=== PATIENT | male | born 1975 | race Caucasian/White ===

== ENCOUNTER → 2021-11-29 12:57 | Outpatient (BNVA) | payer MEDICAID, SELFPAY | PROVIDERS: PCP Registered Nurse Community Health; Referring Provider Registered Nurse Community Health; Visit Provider Internal Medicine | DX: E78.2 Mixed hyperlipidemia (principal); R94.31 Abnormal electrocardiogram [ECG] [EKG] | CPT/HCPCS: 93005; 99202 ==

== ENCOUNTER 2021-12-04 11:34 | Outpatient (REF) | payer MEDICAID, SELFPAY ==
--- NOTE | ~2021-12-04 | US_ITS ---
EXAMINATION: US SOFT TISSUE HEAD/NECK CLINICAL INFORMATION: 3 cm growth left chin. ? Cyst versus lipoma versus other. COMPARISON: None TECHNIQUE: Linear transducer baker-scale and color Doppler examination of the left chin area. FINDINGS: There is a heterogeneous solid irregularly shaped lesion corresponding to palpable abnormality just deep to the skin. This measures 3.3 x 2.9 x 1.8 cm. This appears avascular. Etiology is uncertain. This does not have ultrasound appearance suggestive of a cyst or lymph node. US/US soft tiss head and/or neck IMPRESSION: 3.3 x 2.9 x 1.8 cm heterogeneous solid subcutaneous lesion not suggestive of a cyst or lymph node. This could be further evaluated with neck soft tissue CT scan contrast or MRI.
== END 2021-12-04 11:35 | disposition home or self-care (01) ==
LOC: HO.US 11:34
PROVIDERS: PCP Registered Nurse Community Health; Visit Provider Registered Nurse Community Health
DX: R22.0 Localized swelling, mass and lump, head (principal)
CPT/HCPCS: 76536

== ENCOUNTER → 2022-01-30 07:49 | Outpatient (REF) | payer MEDICAID, SELFPAY ==
--- NOTE | 2022-01-30 07:53 | CA_ITS ---
Transthoracic Echocardiogram Patient (Last, First, Middle): Jacek Antunez, Gender: Male Date of : 1975 Age: 46 Procedure Date: 01/30/2022 Procedure Type: Transthoracic Echocardiogram Location: OP Height: 170.18 cm Weight: 95.26 kg BSA: 2.06 m2 Heart Rate: bpm BP: 125 / 88 mmHg Cloth Measurer Machine: YR/TO Referring MD: Aj Sewell MD Symptoms: R94.31 - Abnormal electrocardiogram [ECG] [EKG] Study Quality: Good ECG Rhythm: Sinus Conclusions: - The left ventricular systolic function is normal. The calculated ejection fraction is 57% by biplane method. - There is evidence of regional wall motion abnormalities. - No obvious valvular pathology seen on this study. - There is mild dilatation of the sinuses of Valsalva measuring 3.82 cm and mild dilatation of the ascending aorta measuring 3.80 cm. Findings Left Ventricle Normal left ventricular cavity size. There is normal left ventricular wall thickness. The left ventricular systolic function is normal. The calculated ejection fraction is 57% by biplane method. There is evidence of regional wall motion abnormalities. Diastolic function is normal for age. Wall Motion Rest Echo Findings The basal inferolateral segment is hypokinetic. The basal inferior segment is akinetic. Right Ventricle Normal right ventricular cavity size and systolic function. Atria Both atria are normal in size. Aortic Valve There is a normal trileaflet aortic valve. There is no aortic valve stenosis. There is no aortic valve regurgitation. Mitral Valve The mitral valve appears normal. There is trace mitral valve regurgitation. There is no mitral valve stenosis. Pulmonic Valve The pulmonic valve was not well visualized. Tricuspid Valve Normal tricuspid valve structure. There is trace tricuspid valve regurgitation. The pulmonary artery systolic pressure is normal. Great Vessels There is mild dilatation of the sinuses of Valsalva measuring 3.82 cm and mild dilatation of the ascending aorta measuring 3.80 cm. Venous The inferior vena cava is normal in size and collapses greater than 50% with inspiration. Pericardium/Pleural There is no evidence of pericardial effusion. Prior Study Comparison No prior study available for comparison. Recommendations, Care & Conclusions No obvious valvular pathology seen on this study. Measurements 2D Linear Measurements IVSd: 1.08 0.6-0.9/0.6-1.0 cm LVIDd: 5.36 3.9-5.3/4.2-5.9 cm LVIDd Index: 2.60 2.4-3.2/2.2-3.1 cm/m2 LVIDs: 3.01 2.0-3.6 cm LVPWd: 0.91 0.7-1.1 cm LA Diam: 4.40 2.7-3.8/3.0-4.0 cm LAIDs Index: 2.14 1.5-2.3 cm/m2 LV Mass: 252.97 67-162/88-224 g LV Mass Index: 122.80 43-95/49-115 g/m2 LVOT Diam: 2.70 3.0+(-)1.3 cm 2D Systolic Function EF 4C: 58.10 >55% EF 2C: 58.60 >55% EF BiP: 56.50 >55% Mitral Valve MV Pk E: 0.66 MV PK A: 0.59 MV Decel Time: 291.00 E/A: 1.10 E'Lateral: 10.10 E'Medial: 6.42 E/E' Med: 10.30 E/E' Lat: 6.60 PHT: 85.00 MVA PHT: 2.59 Decel [place]: 2.28 Aortic Valve AoV Pk Dmitry: 1.23 AoV Mn Dmitry: 0.83 AoV VTI: 0.24 AoV Pk Grad: 6.00 Aov Mn Grad: 3.00 ROSELIA Cont.VTI: 4.21 LVOT LVOT Pk Dmitry: 0.74 LVOT Mn Dmitry: 0.47 LVOT VTI: 0.18 LVOT Pk Grad: 2.00 LVOT Mn Grad: 1.00 LVOT Diam: 2.70 LVOT Area: 5.73 Diastolic Function MV Pk E: 0.66 MV Pk A: 0.59 E/A: 1.10 E'Medial: 6.42 E/E' Med: 10.30 E' Laterial: 10.10 E/E' Lat: 6.60 Right Ventricle TAPSE (mm): 24.40 TVS' Dmitry: 13.20 Tricuspid Valve TR Pk Dmitry: 1.44 TR Pk Grad: 8.00 RA Press: 3.00 RVSP: 11.00 Great Vessels Aorta Sinus of Valsalva: 3.82 2.0-3.[address] [place]: 2.99 1.7-3.4 cm Ao Asc: 3.80 2.1-3.4 cm Ao Arch: 3.30 Pulmonary Valve PV Pk Dmitry: 0.79 Peak PV Grad: 2.00 Updated in Other Vendor System with Status of Final Aj Sewell MD electronically signed on 02/01/2022 1:16:51 PM with status of Final
--- NOTE | 2022-01-30 10:04 | CA_ITS ---
Acquisition Time: 2022-01-30 10:15:53 Total Exercise Time: 00:09:28 Test Indications: Abnormal ECG Medications: ATORVASTATIN SUBOXONE FENOFIBRATE Protocol: MACIEJ Max HR: 146 BPM 83% of Pred: 174 BPM Max BP: 140/080 mmHG Max Work Load: 10.8 METS Exercise stress test with exercise 9 min 28 sec of Maciej protocol, achieving 83% MPHR, 10.8 METS with fatigue and moderate sob and request to stop, with no chest discomfort, with rare PVC, with normotensive response to exercise, with EKG showing T wave inversion lead III, aVF at baseline and again in recovery, without EKG changes meeting criteria for ischemia with exercise or recovery. Accurracy to assess for ischemia slightly decreased due to inability to acheive 85% MPHR. Test reviewed with Dr Sewell Referred By: Aj Sewell Overread By: TERRIE ORLANDO
== END ==
LOC: HO.CARD 07:49
PROVIDERS: Visit Provider Internal Medicine
DX: R94.31 Abnormal electrocardiogram [ECG] [EKG] (principal); E78.2 Mixed hyperlipidemia
CPT/HCPCS: 93017; 93306

== ENCOUNTER → 2022-02-19 08:35 | Outpatient (REF) | payer MEDICAID, SELFPAY ==
--- NOTE | ~2022-02-19 | NM_ITS ---
Lexiscan Myocardial perfusion study Indication: Wall motion abnormality on the echocardiogram, assess for coronary disease and ischemia. Technique: The patient was brought in for a Lexiscan perfusion study on 02/19/2022 and was injected 0.4 mg of Lexiscan intravenously. Within a minute of this injection 30 mCi of sestamibi was given intravenously. Images were obtained using the SPECT gamma camera interlaced with the gating device. Images were obtained in supine position. Resting perfusion study was performed on 02/20/2022. Patient was administered 30 mCi of sestamibi intravenously at rest. Images were then obtained in supine position. Total DLP 103mGy-cm. Images were processed with the software and compared side to side in short axis, horizontal long axis and vertical long axis views. Findings: Raw acquisition was reviewed. The stress perfusion study showed diminished tracer uptake in the basal inferior wall. With CT attenuation correction, adjacent GI uptake looks a bit more prominent. The gated study shows normal LV systolic function with calculated LVEF of 66%. LV cavity is normal in size. The gated study shows diminished thickening /contractility in the basal inferior wall. Resting study shows diminished tracer uptake in the basal inferior wall, but improved compared to the stress acquisition. Gating at rest reveals ejection fraction at 62%; basal inferior hypokinesis. The findings are consistent with basal inferior defect with reversible as well as fixed components. NM/NM cardiolite stress test Impression: 1. Myocardial perfusion imaging study shows mixed ischemia/infarct pattern in the basal inferior wall. 2. Gated LVEF is 66% during stress and 62% during rest. 3. Transient ischemic dilatation not present. EKG component of the test reported separately.
--- NOTE | 2022-02-19 08:38 | CA_ITS ---
Acquisition Time: 2022-02-19 09:02:45 Total Exercise Time: 00:08:34 Test Indications: ABN STRESS Medications: ATORVASTATIN INSULIN Protocol: MACIEJ Max HR: 125 BPM 71% of Pred: 174 BPM Max BP: 136/088 mmHG Max Work Load: 10.1 METS Started with exercise stress nuclear using Maciej protocol, pt exercised for 8 min 34 sec and MAPHR up to 70 % and patient was getting fatigued, test switched to Lexiscan, Pt tolerated well, denies any CP, EKG with occ PVC;s non-diagnostic for ischemia. Nuclear images pending. Normotensive response to test. Test reviewed with Dr. Bolanos. Referred By: Aj Sewell Overread By: Claire De La Rosa NP
== END ==
LOC: HO.CARD 08:35
PROVIDERS: Visit Provider Internal Medicine
DX: R94.30 Abnormal result of cardiovascular function study, unspecified (principal); R94.31 Abnormal electrocardiogram [ECG] [EKG]
CPT/HCPCS: 78452; 93017; A9500; J0280; J2785

== ENCOUNTER → 2022-03-13 08:57 | Outpatient (BNVA) | payer MEDICAID, SELFPAY | PROVIDERS: PCP Registered Nurse Community Health; Visit Provider Internal Medicine | DX: Z13.89 Encounter for screening for other disorder (principal) ==

== ENCOUNTER 2022-03-14 10:01 | Outpatient (REF) | payer MEDICAID, SELFPAY ==
[2022-03-14 11:01] LABS: Estimated Average Glucose 143 mg/dL; Hemoglobin A1c % 6.6 %
[2022-03-14 11:42] LABS: Alanine Aminotransferase 39 U/L (0-40); Albumin Level 4.2 g/dL (3.5-5.0); Alkaline Phosphatase 71 U/L (39-117); Anion Gap 12 (12-20); Aspartate Amino Transferase 36 U/L (5-37); Bilirubin Total 0.6 mg/dL (0.0-1.0); Blood Urea Nitrogen 12 mg/dL (9-16); Calcium 9.4 mg/dL (8.4-10.2); Carbon Dioxide 23 mmol/L (22-29); Chloride 106 mmol/L (96-108); Cholesterol 237 mg/dL; Estimated Glomerular Filt Rate > 60; Glucose Random 122 mg/dL (60-115); HDL Cholesterol 30 mg/dL; Potassium 4.1 mmol/L (3.3-5.1); Sodium 137 mmol/L (135-145); Total Protein 7.3 g/dL (6.5-8.0); Triglycerides 440 mg/dL
[2022-03-14 11:56] LABS: Free T4 (Free Thyroxine) 0.97 ng/dL (0.71-1.85); Vitamin D 25-OH Total 12.5 ng/mL (>30)
[2022-03-15 17:52] LABS: LDL Cholesterol Direct 96 mg/dL (<100)
[2022-03-18 18:02] LABS: Apolipoprotein B 131 mg/dL (<90)
== END 2022-03-14 10:02 | disposition home or self-care (01) ==
LOC: HO.LAB 10:01
PROVIDERS: PCP Registered Nurse Community Health; Visit Provider Internal Medicine
DX: E78.2 Mixed hyperlipidemia (principal); E78.1 Pure hyperglyceridemia; E55.9 Vitamin D deficiency, unspecified
CPT/HCPCS: 36415; 80053; 80061; 82172; 82306; 83036; 83721; 84439; 84443

== ENCOUNTER → 2022-03-19 13:05 | Outpatient (BNVA) | payer MEDICAID, SELFPAY | PROVIDERS: PCP Registered Nurse Community Health; Referring Provider Registered Nurse Community Health; Visit Provider Nurse Practitioner Family | DX: R94.31 Abnormal electrocardiogram [ECG] [EKG] (principal); R94.39 Abnormal result of other cardiovascular function study; I21.19 ST elevation (STEMI) myocardial infarction involving other coronary artery of inferior wall; E78.2 Mixed hyperlipidemia; E78.1 Pure hyperglyceridemia | CPT/HCPCS: 99212 ==

== ENCOUNTER → 2022-04-09 11:05 | Outpatient (BNVA) | payer MEDICAID, SELFPAY | PROVIDERS: PCP Registered Nurse Community Health; Visit Provider Internal Medicine | DX: Z13.89 Encounter for screening for other disorder (principal) ==

== ENCOUNTER → 2022-05-02 11:55 | Outpatient (BNVA) | payer MEDICAID, SELFPAY | PROVIDERS: PCP Registered Nurse Community Health; Visit Provider Registered Nurse Diabetes Educator | DX: E11.65 Type 2 diabetes mellitus with hyperglycemia (principal); Z79.4 Long term (current) use of insulin | CPT/HCPCS: 99211 ==

== ENCOUNTER 2022-06-03 15:21 | Outpatient (REF) | payer MEDICAID, SELFPAY ==
--- NOTE | ~2022-06-03 | XR_ITS ---
EXAMINATION: XR CHEST CLINICAL INFORMATION: SOB, cough and increased congestion. COMPARISON: None TECHNIQUE: 2 views of the chest were obtained. FINDINGS: No significant abnormality is noted involving the heart, lungs, mediastinum, bony thorax or soft tissues. XR/XR chest 2V IMPRESSION: Unremarkable chest exam.
== END 2022-06-03 15:22 | disposition home or self-care (01) ==
LOC: HO.XRAY 15:21
PROVIDERS: PCP Registered Nurse Community Health; Visit Provider Registered Nurse Community Health
DX: R06.02 Shortness of breath (principal); R05.9 Cough, unspecified
CPT/HCPCS: 71046

== ENCOUNTER 2022-06-21 14:29 | Outpatient (REF) | payer MEDICAID, SELFPAY ==
--- NOTE | 2022-06-21 | PFT_ITS ---
FLOWS: FEV1 88% of predicted at 3.20 L. FVC 81% of predicted at 3.74 L. FEV1 to FVC ratio of 0.86. No bronchodilator response. LUNG VOLUMES: Total lung capacity 81% of predicted at 5.20 L. Residual volume 78% of predicted at 1.41 L. Slow vital capacity 83% of predicted at 3.79 L. Expiratory reserve volume 23% of predicted at 0.31 L. Diffusion capacity is mildly decreased. IMPRESSION: No obstructive or restrictive ventilatory defect. No bronchodilator response. Decreased expiratory reserve volume suggests extrathoracic restriction likely secondary to abdominal obesity. Decreased diffusion capacity suggests emphysema. MD ASHLEY Garcia/MODL / [id number]
== END 2022-06-21 14:30 | disposition home or self-care (01) ==
LOC: HO.RESP 14:29
PROVIDERS: PCP Registered Nurse Community Health; Visit Provider Registered Nurse Community Health
DX: R06.02 Shortness of breath (principal)
CPT/HCPCS: 94060; 94727; 94729

== ENCOUNTER → 2022-07-26 14:15 | Outpatient (BNVA) | payer MEDICAID, SELFPAY | PROVIDERS: PCP Registered Nurse Community Health; Visit Provider Internal Medicine | DX: E78.1 Pure hyperglyceridemia (principal); E78.5 Hyperlipidemia, unspecified; E55.9 Vitamin D deficiency, unspecified; E11.65 Type 2 diabetes mellitus with hyperglycemia; Z79.4 Long term (current) use of insulin | CPT/HCPCS: 99212 ==

== ENCOUNTER 2022-08-07 07:34 | Outpatient (REF) | payer MEDICAID, SELFPAY ==
[2022-08-07 08:47] LABS: Cholesterol 205 mg/dL; HDL Cholesterol 30 mg/dL; Triglycerides 493 mg/dL
[2022-08-07 09:09] LABS: Vitamin D 25-OH Total 23.9 ng/mL (>30)
[2022-08-08 13:51] LABS: LDL Cholesterol Direct 80 mg/dL (<100)
== END 2022-08-07 07:35 | disposition home or self-care (01) ==
LOC: HO.LAB 07:34
PROVIDERS: Internal Medicine; Visit Provider Internal Medicine
DX: I25.10 Atherosclerotic heart disease of native coronary artery without angina pectoris (principal); E11.65 Type 2 diabetes mellitus with hyperglycemia; E78.2 Mixed hyperlipidemia; E55.9 Vitamin D deficiency, unspecified; Z79.4 Long term (current) use of insulin
CPT/HCPCS: 36415; 80061; 82306; 83721; 99212

== ENCOUNTER 2022-11-13 10:47 | Outpatient (REF) | payer MEDICAID, SELFPAY ==
[2022-11-13 13:31] LABS: Alanine Aminotransferase 40 U/L (0-40); Albumin Level 4.3 g/dL (3.5-5.0); Alkaline Phosphatase 75 U/L (39-117); Anion Gap 13 (12-20); Aspartate Amino Transferase 26 U/L (5-37); Bilirubin Total 0.4 mg/dL (0.0-1.0); Blood Urea Nitrogen 11 mg/dL (9-16); Calcium 9.4 mg/dL (8.4-10.2); Carbon Dioxide 24 mmol/L (22-29); Chloride 102 mmol/L (96-108); Cholesterol 431 mg/dL; Estimated Glomerular Filt Rate > 60; Glucose Random 123 mg/dL (60-115); HDL Cholesterol 22 mg/dL; Sodium 135 mmol/L (135-145); Total Protein 8.1 g/dL (6.5-8.0); Triglycerides 2201 mg/dL
[2022-11-13 13:39] LABS: Vitamin D 25-OH Total 13.1 ng/mL (>30)
[2022-11-13 13:57] LABS: Estimated Average Glucose 123 mg/dL; Hemoglobin A1c % 5.9 %
[2022-11-14 22:38] LABS: LDL Cholesterol Direct 76 mg/dL (<100)
== END 2022-11-13 10:48 | disposition home or self-care (01) ==
LOC: HO.LAB 10:47
PROVIDERS: Visit Provider Internal Medicine
DX: E55.9 Vitamin D deficiency, unspecified (principal); E11.65 Type 2 diabetes mellitus with hyperglycemia; E78.5 Hyperlipidemia, unspecified; Z79.4 Long term (current) use of insulin
CPT/HCPCS: 36415; 80053; 80061; 82306; 83036; 83721

== ENCOUNTER → 2022-11-18 13:55 | Outpatient (BNVA) | payer MEDICAID, SELFPAY | PROVIDERS: PCP Registered Nurse Community Health; Visit Provider Internal Medicine | DX: E78.5 Hyperlipidemia, unspecified (principal); E78.1 Pure hyperglyceridemia; E55.9 Vitamin D deficiency, unspecified; E11.65 Type 2 diabetes mellitus with hyperglycemia; I21.19 ST elevation (STEMI) myocardial infarction involving other coronary artery of inferior wall; F17.210 Nicotine dependence, cigarettes, uncomplicated; Z79.4 Long term (current) use of insulin; Z91.14 Patient's other noncompliance with medication regimen | CPT/HCPCS: 99212 ==

== ENCOUNTER 2023-01-27 09:52 | Outpatient (REF) | payer MEDICAID, SELFPAY ==
[2023-01-27 11:15] LABS: Cholesterol 298 mg/dL; HDL Cholesterol 31 mg/dL; Triglycerides 673 mg/dL
[2023-01-27 11:32] LABS: Vitamin D 25-OH Total 25.5 ng/mL (>30)
[2023-01-28 19:43] LABS: LDL Cholesterol Direct 102 mg/dL (<100)
== END 2023-01-27 09:53 | disposition home or self-care (01) ==
LOC: HO.10HDL 09:52
PROVIDERS: Visit Provider Internal Medicine
DX: E78.1 Pure hyperglyceridemia (principal); E55.9 Vitamin D deficiency, unspecified
CPT/HCPCS: 36415; 80061; 82306; 83721

== ENCOUNTER → 2023-03-05 11:51 | Outpatient (BNVA) | payer MEDICAID, SELFPAY | PROVIDERS: PCP Registered Nurse Community Health; Visit Provider Internal Medicine | DX: E78.1 Pure hyperglyceridemia (principal); E78.5 Hyperlipidemia, unspecified; E55.9 Vitamin D deficiency, unspecified | CPT/HCPCS: 99212 ==

== ENCOUNTER → 2023-06-04 08:14 | Outpatient (BNVA) | payer MEDICAID, SELFPAY | PROVIDERS: PCP Registered Nurse Community Health; Visit Provider Internal Medicine ==

== ENCOUNTER 2023-08-04 12:56 | Outpatient (AMB) | payer MEDICAID, SELFPAY ==
--- NOTE | 2023-06-04 08:14 | MHC.OFFVIS ---
Intake Intake Visit Reasons: DM est pt new dx Allergies No Known Allergies Allergy (Verified 06/04/23 08:14) PFSH Medical History HLD (hyperlipidemia) Hypertriglyceridemia Inferior myocardial infarction Mixed hyperlipidemia T2DM (type 2 diabetes mellitus) Vitamin D deficiency Surgical History History of appendectomy Family History Father Cancer Mother CVD (cardiovascular disease) Hypertension Social History Alcohol intake: never Patient Tobacco Use Status: Current everyday Tobacco user Cigarette Packs Per Day: 1 Telehealth Telehealth Location of provider rendering services: practice address Location of patient: address on file Patient Identification confirmed using: Name, : Yes Telehealth method: voice only Patient verbally consented to treatment: Yes Patient verbally consented to billing insurance company: Yes Patient informed of any privacy concerns related to visit: Yes Coding Diagnoses
--- NOTE | 2023-08-04 13:03 | MHC.OFFVIS ---
Intake Vital Signs 08/04/23 13:04 Height 5 ft 7 in Weight 209 lb 10.554 oz BMI 32.8 BP 136/86 Blood Pressure Location Lt brachial Position Sitting Pulse 90 Pulse Source Pulse Oximeter Intake Visit Reasons: DM/Confirmed Intake Note: Patient presents today to follow up on Type [address] Jaramillo patient. Last Diabetic Eye exam: 1 year ago Last Podiatry Visit:None Random Glucose: 297 mg/dl HgA1C: 7.6% Microstrategy Architect Developer Required: Yes Microstrategy Architect Developer Language: Mexican Information Interpreted: non-clinical & clinical Accompanied by: Self / Same As Patient Allergies No Known Allergies Allergy (Verified 08/04/23 13:09) HPI HPI Comments History of Present Illness Details 48 YO Male with a PMHx of T2DM, HTG and HLD and history of pancreatitis who is seen in F/U for hypertriglyceridemia. . Patient last saw Dr. Jaramillo on 03/05/2023 Of note the patient is a very poor historian and has very little history to offer today. He arrived over 40 minutes late for his appointment. He reportedly has a history of T2DM and has been prescribed insulin. He reports rarely using this and states his sugars are always controlled. Currently onmetformin 500 mg BID Unfortunately, patient did not bring log book or glucometer to follow-up visit Per records from his Health Information Director he has elevated TG levels >3500 and 2 prior episodes of pancreatitis. He was started on Atorvastatin 40 mg PO daily, Gemfibrozil 600 mg PO BID and Fenofibrate 145 mg PO daily Triglycerides have improved significantly to 440. He does report he is not taking the Gemfibrozil, but is taking the atorvastatin and fenofibrate daily. He was also started on Aspirin per his material handling crew supervisor. We then increased his Atorvastatin to 80 mg PO daily and stopped his gemfibrozil. He was also started on vascepa 2 mg PO BID. Current regimen is Atorvastatin 80 mg PO daily, Fenofibrate 145 mg PO daily and Vascepa 2 mg PO BID Zetia 10 mg QD . He reports good compliance with this and his TG levels have improved. APO-B levels are elevated. He does have a history of CAD with a prior inferior wall IL. He does report his mother has CAD that was diagnosed in her 40's. Labs: Laboratory Tests 11/13/22 11/13/22 11:01 11:01 Triglycerides 2201 Cholesterol 431 LDL Cholesterol Di rect 76 HDL Cholesterol 22 25-OH Vitamin D To kirk 13.1 [facility] Medical History HLD (hyperlipidemia) Hypertriglyceridemia Inferior myocardial infarction Mixed hyperlipidemia T2DM (type 2 diabetes mellitus) Vitamin D deficiency Surgical History History of appendectomy Family History Father Cancer Mother CVD (cardiovascular disease) Hypertension Social History Alcohol intake: never Patient Tobacco Use Status: Current everyday Tobacco user Cigarette Packs Per Day: 1 Physical Exam Vital Signs: Last Vital Signs Pulse 90 08/04/23 13:04 BP 136/86 08/04/23 13:04 BMI result Body Mass Index 32.8 Absence of Cushingoid features. Absence of acromegalic features. Neck exam reveals nl size thyroid about 15 gms. No thyroid nodules palpable. No carotid bruits present. Lungs CTA. Heart S1 S2, Reg R/R. No M/R/ G. Skin exam reveals absence of vitiligo or acanthosis nigricans. Abdominal exam reveals Soft NT/ND with NA BS. No organomegaly present. Neck Other: . Extrem Other: Visual exam of foot performed. No ulcerations or open lesions. No onchomycosis, no callouses.Pulses 2 + distally Sensation intact to monofilament exam. Vibratory sensation sensed is intact with 128 Hz tuning fork Results AMB Hemoglobin A1c AMB Hemoglobin A1c 7.6 % Last Edit by Lilly Meneses on 08/04/23 13:23 Results Reviewed Results Reviewed: 08/04/23 13:12 Glucose, Whole Blood Routine Laboratory Last Values Glucose (Clinic) 297 mg/dL (60-115) H 08/04/23 13:12 Assessment & Plan Assessment & Plan (1) Hypertriglyceridemia: Code(s): E78.1 - Pure hyperglyceridemia Plan: This is a 48-year-old male with a history of severe hypertriglyceridemia most likely multifactorial and familial. He is currently being treated with atorvastatin, ezetimibe, fenofibrate and Vascepa with some improvement in triglycerides but still >500 still putting him at risk for pancreatitis. Plan is to check a urinalysis to rule out proteinuria. Also instructed patient to take all his hyperlipidemic medications as well as the insulin. Start Actos 30 mg in combination which will lower triglycerides and HbA1c. Will recheck HbA1c and lipid profile in 2 months. Will also sent to bill of materials clerk (2) T2DM (type 2 diabetes mellitus): Code(s): E11.9 - Type 2 diabetes mellitus without complications Qualifiers: Diabetes mellitus skilled nursing insulin use: with skilled nursing use Diabetes mellitus complication status: with hyperglycemia Qualified Code(s): E11.65 - Type 2 diabetes mellitus with hyperglycemia; Z79.4 - snf (current) use of insulin Plan: This is a 48-year-old male with history of type 2 diabetes being treated with diet with fair glycemic control in the setting of severe hypertriglyceridemia. He has no known microvascular or macrovascular complication The plan is to start a G LP 1 agonist namely Ozempic in light of the history of coronary artery disease. This will improve glycemic control and should have an affect on lowering triglycerides Orders: Orders AMB Hemoglobin A1c Today E11.9 - Type 2 diabetes mellitus without complications AMB Hemoglobin A1c 2 Months E11.9 - Type 2 diabetes mellitus without complications, E78.1 - Pure hyperglyceridemia, Z13.9 - Encounter for screening, unspecified Lipid Panel 2 Months E11.9 - Type 2 diabetes mellitus without complications, E78.1 - Pure hyperglyceridemia Referrals Nutrition/Dietitian Referral E11.9 - Type 2 diabetes mellitus without complications, E78.1 - Pure hyperglyceridemia Medications: New flash glucose sensor (FreeStyle Nic 2 Sensor kit) As directed change every 14 days 2 ea 5RF pioglitazone (Actos) 30 mg PO DAILY 30 tabs 5RF flash glucose scanning reader (FreeStyle Nic 2 Magnet) As directed 1 ea 0RF Coding Level of Care Code Est Pt Level 4 (49121) Diagnoses Hypertriglyceridemia E78.1 Type 2 diabetes mellitus with hyperglycemia, with long-term current use of insulin E11.65; Z79.4 Diabetes mellitus skilled nursing insulin use: with skilled nursing use Diabetes mellitus complication status: with hyperglycemia
[2023-08-04 13:04] VITALS: BP 136/86; PULSE 90; BMI 32.8
[2023-08-04 13:16] LABS: Glucose, Whole Blood 297 mg/dL (60-115)
== END 2023-08-04 13:53 | disposition home or self-care (01) ==
PROVIDERS: PCP Registered Nurse Community Health; Visit Provider Internal Medicine Endocrinology, Diabetes & Metabolism
DX: E78.1 Pure hyperglyceridemia (principal); E11.65 Type 2 diabetes mellitus with hyperglycemia; Z79.4 Long term (current) use of insulin; E11.9 Type 2 diabetes mellitus without complications
CPT/HCPCS: 99214

== ENCOUNTER → 2023-08-04 12:56 | Outpatient (BNVA) | payer MEDICAID, SELFPAY | PROVIDERS: PCP Registered Nurse Community Health; Visit Provider Internal Medicine Endocrinology, Diabetes & Metabolism | DX: E11.65 Type 2 diabetes mellitus with hyperglycemia (principal); E78.1 Pure hyperglyceridemia; Z79.4 Long term (current) use of insulin; Z79.84 Long term (current) use of oral hypoglycemic drugs | CPT/HCPCS: 82947; 83036; 99212 ==

== ENCOUNTER 2023-09-11 12:44 | Outpatient (AMB) | payer MEDICAID, SELFPAY ==
[2023-09-11 12:50] VITALS: BMI 32.2
--- NOTE | 2023-09-11 12:50 | A.OFFVIS_ITS ---
Intake VS Expanded 09/11/23 12:50 09/11/23 13:40 Height 5 ft 7 in 5 ft 7 in Weight 205 lb 7.533 oz 205 lb BMI 32.2 32.1 Intake Visit Reasons: Type 2 diabetes Allergies No Known Allergies Allergy (Verified 08/04/23 13:09) HPI Nutrition Presentation Details Pt presents for MNT for T2DM and with hypertriglyceridemia. Pt was referred by Dr. Ashton, machine precision etcher Pt reports doing ok, he admits to not paying much attention to his diet intake lately. Typical meal B:Monster beverage L: chips/soda or soda/fritter D: rice/beans, pork chop,water or juice fried foods 3 x/wk fruits:0-1/d vegetables:not including dairy: 0-1/d protein foods:variety , not including fish starches > 20 serving/d ETOH: reports abstaining smoking-denies physical activity:daily life activities ITJ-Laeofxg-Ny.Jeor Equation Height 5 ft 7 in Weight 205 lb Resting Metabolic Rate 1761.40 Calculated Activity Level Sedentary Calories Needed to Maintain Weight 2113.68 Diagnosis Nutrition problem #1 excessive energy intake (fats/sugars) As related to (etiology) #1 diagnosis (t2dm, hypertriglyceredemia) As evidenced by (sign/symptom) #1 food recall Monitoring/Goals Nutrition problem monitoring level of knowledge/skill (reduction of fried foods and sugary beverages) Learning/Education Readiness to learn good Stages of change preparation Educational materials provided Yes ( low fat/low sugar food concepts, high fiber foods /omega 3) Most Recent Diabetes Results: Cholesterol 298 mg/dL 01/27/23 HDL Cholesterol 31 mg/dL 01/27/23 Triglycerides 673 mg/dL 01/27/23 Creatinine 0.78 mg/dL (0.5-1.4) 11/13/22 Blood Urea Nitrogen 11 mg/dL (9-16) 11/13/22 Sodium 135 mmol/L (135-145) 11/13/22 Potassium 4.0 mmol/L (3.3-5.1) 11/13/22 Chloride 102 mmol/L (96-108) 11/13/22 Carbon Dioxide 24 mmol/L (22-29) 11/13/22 Calcium 9.4 mg/dL (8.4-10.2) 11/13/22 AST 26 U/L (5-37) 11/13/22 ALT 40 U/L (0-40) 11/13/22 Total Protein 8.1 g/dL (6.5-8.0) H 11/13/22 Albumin 4.3 g/dL (3.5-5.0) 11/13/22 [facility], [facility] Medical History HLD (hyperlipidemia) Hypertriglyceridemia Inferior myocardial infarction Mixed hyperlipidemia T2DM (type 2 diabetes mellitus) Vitamin D deficiency Surgical History History of appendectomy Family History Father Cancer Mother CVD (cardiovascular disease) Hypertension Social History Alcohol intake: never Patient Tobacco Use Status: Current everyday Tobacco user Cigarette Packs Per Day: 1 Assessment & Plan Assessment & Plan (1) T2DM (type 2 diabetes mellitus): Code(s): E11.9 - Type 2 diabetes mellitus without complications Qualifiers: Diabetes mellitus residential insulin use: with intermission coordinator use Diabetes mellitus complication status: with hyperglycemia Qualified Code(s): E11.65 - Type 2 diabetes mellitus with hyperglycemia; Z79.4 - half-way (current) use of insulin Plan: wt: 93 kg Est kcal needs as per MSJ: 2100 (40% carb, 30% protein/fat) Est fluid needs as per 30 ml/d: 2795 Est prot per day as per 1 g/kg bw: 93 Recommend fiber intake : 8-10 g per day and gradually increase to 25-28 g per day for women and 35-38 g for men or as tolerated Recommend sodium intake per day : less than 2000 mg Educated patient on: ( R = reviewed V = verbalizes understanding N/R = needs review N/A = not applicable * Food sources of carbohydrate, adequate serving sizes and its role in various health conditions: NR * Differences between complex carbohydrates a simple carbohydrates, role of fiber in diet: R * Differences between types of fats and role in diet (mono on saturated fat fatty acids, saturated fatty acids, trans fats): R basic low fat and omega 3 sources of foods * Food sources of sodium in salt and healthy modifications for heart health in kidney health: NR * Vitamins and minerals: NR * Healthy plate method concept: R ,V * Physical activity: Benefits a precaution: R * Dietary prevention of Hyperglycemia and ADA BG goals (80-130 fasting bg, 80- 180 , 2 hr after a leyda) R (2) Hypertriglyceridemia: Code(s): E78.1 - Pure hyperglyceridemia Patient Instructions: Reduce intake of fried breaded foods- bake/use air fryer Do not add fat when cooking, choose low fat foods Reduce on sugary beverages Include foods with omega 3: fish at least twice, 1-2 tsp of milled flaxseed/day Keep hydrated by having water with meals/snacks see 2100 brinda meal plan as reference Coding Level of Care Code Nutr Indiv Intake (28885) Diagnoses Type 2 diabetes mellitus with hyperglycemia, with long-term current use of insulin E11.65; Z79.4 Diabetes mellitus residential insulin use: with residential use Diabetes mellitus complication status: with hyperglycemia Hypertriglyceridemia E78.1 Time Spent (min) 30
[2023-09-11 13:40] VITALS: BMI 32.1
== END 2023-09-11 13:23 | disposition home or self-care (01) ==
PROVIDERS: PCP Registered Nurse Community Health; Visit Provider Dietitian, Registered
DX: E11.65 Type 2 diabetes mellitus with hyperglycemia (principal); Z79.4 Long term (current) use of insulin; E78.1 Pure hyperglyceridemia

== ENCOUNTER → 2023-09-11 12:44 | Outpatient (BNVA) | payer MEDICAID, SELFPAY | PROVIDERS: PCP Registered Nurse Community Health; Visit Provider Dietitian, Registered | DX: E11.65 Type 2 diabetes mellitus with hyperglycemia (principal); E78.1 Pure hyperglyceridemia; Z79.4 Long term (current) use of insulin | CPT/HCPCS: 97802 ==

== ENCOUNTER 2023-10-17 14:40 | Outpatient (AMB) | payer MEDICAID, SELFPAY ==
[2023-10-17 14:44] VITALS: BP 130/80; PULSE 75; BMI 32.9
--- NOTE | 2023-10-17 14:44 | A.OFFVIS_ITS ---
Intake Vital Signs 10/17/23 14:44 Height 5 ft 7 in Weight 209 lb 14.081 oz BMI 32.9 BP 130/80 Blood Pressure Location Lt brachial Position Sitting Pulse 75 Intake Visit Reasons: chest pain/ 1 year follow up Intake Note: 1 yr f/up pt its feeling fine Consumer Safety Inspector Required: Yes Consumer Safety Inspector Language: Substation Electrician Name: Sindhu Lawrence [id number] Information Interpreted: non-clinical & clinical Accompanied by: Self / Same As Patient Allergies No Known Allergies Allergy (Verified 08/04/23 13:09) Medication List - Last Reconciled 10/17/23 by Jennifer Hilliard NP aspirin (Adult Aspirin Regimen) 81 mg PO DAILY atorvastatin 80 mg PO BEDTIME 30 days buprenorphine-naloxone 8-2 mg (Suboxone) 10 mg sublingual BID ergocalciferol (vitamin D2) 1,250 mcg PO QWEEK ezetimibe 10 mg PO DAILY 30 days fenofibrate nanocrystallized 145 mg PO DAILY 30 days flash glucose scanning reader (Live MatrixStyle Nic 2 [place]) As directed flash glucose sensor (FreeStyle Nic 2 Sensor kit) USE DIRECTED. CHANGE EVERY 14 DAYS hydroxyzine pamoate 50 - 100 mg PO BEDTIME PRN insulin detemir U-100 (Levemir U-100 Insulin) 10 units subcut DIRECTED metformin ER 1,000 mg (2 x 500 mg) PO BID 30 days pioglitazone (Actos) 30 mg PO DAILY Vascepa (icosapent ethyl) 2 grams (2 x 1 gram) PO BID 30 days NS HPI HPI Comments History of Present Illness Details 48-year-old male presents for a follow-u p. Certified registered nurse teacher used. He is concerned for squeezing chest pain he has been having for the last 2-3 months. Happens mostly on exertion. He reports shortness of breath that he contributes to his senior care smoking. He reports he has been very fatigued and snores a lot. [facility] Medical History T2DM (type 2 diabetes mellitus) Inferior myocardial infarction Vitamin D deficiency HLD (hyperlipidemia) Mixed hyperlipidemia Hypertriglyceridemia Surgical History History of appendectomy Family History Father Cancer Mother CVD (cardiovascular disease) Hypertension Social History Alcohol intake: never Patient Tobacco Use Status: Current everyday Tobacco user Cigarette Packs Per Day: 1 Review of Systems Const Reports chills, Reports fatigue, Reports fever(s), Reports frequent falls, Reports weakness, Reports weight gain and Reports weight loss ENT Reports dizziness Card Reports chest pain, Reports leg edema, Reports lightheadedness, Reports palpitations, Reports dyspnea and Reports dyspnea on exertion Resp Reports cough, Reports dyspnea and Reports dyspnea on exertion GI Reports hematochezia Musc Reports abnormal gait, Reports muscle weakness, Reports numbness, Reports radiating pain into limb and Reports tingling Neuro Reports abnormal gait, Reports dizziness, Reports frequent falls, Reports numbness, Reports tingling and Reports weakness Endo Reports fatigue and Reports palpitations Physical Exam Vital Signs: Last Vital Signs Pulse 75 10/17/23 14:44 BP 130/80 10/17/23 14:44 BMI result Body Mass Index 32.9 Office Procedures EKG Details: KG today. Normal Sinus Rhythm. LVH. ST & T wave abnormality - consider inferior ischemia. Rate 75bpm. QRS 90 ms. QTc 433 ms. No significant changes from last. [id number], Complete Assessment & Plan Assessment & Plan (1) Hypersomnia: Code(s): G47.10 - Hypersomnia, unspecified (2) Chest pain: Code(s): R07.9 - Chest pain, unspecified (3) Atherosclerotic cardiovascular disease: Code(s): I25.10 - Atherosclerotic heart disease of kenaitze coronary artery without angina pectoris Plan: Echocardiogram with LVEF 57% and inferior wall motion abnormality. Ascending aortic size borderline dilatation at 3.8 cm. Myocardial perfusion imaging study shows mixed ischemia/infarct pattern in the basal inferior wall. Clinically, he has got no ischemic symptoms. Continue aspirin. (4) T2DM (type 2 diabetes mellitus): Code(s): E11.9 - Type 2 diabetes mellitus without complications Qualifiers: Diabetes mellitus senior care insulin use: with vermin exterminator use Diabetes mellitus complication status: with hyperglycemia Qualified Code(s): E11.65 - Type 2 diabetes mellitus with hyperglycemia; Z79.4 - truck terminal manager (current) use of insulin Plan: He is on metformin. Insulin. Hemoglobin A1c is 6.6%. (5) Mixed hyperlipidemia: Code(s): E78.2 - Mixed hyperlipidemia Plan: Most recently triglycerides 493 and LDL 96 mg/dL. On atorvastatin, fenofibrate and Vascepa. Plan Will update testing to check for any new ischemic findings and check for sleep apnea. ED care for symptoms if needed. Complete smoking cessation advised, avoidance of caffeinated drinks such as energy drinks should be avoided, and a heart healthy diet was encouraged. Discussed the risks that occur with uncon trolled cholesterol and diabetes and the importance of getting them under control. Orders: Orders CA stress test Today I25.10 - Atherosclerotic heart disease of kenaitze coronary artery without angina pectoris, R07.9 - Chest pain, unspecified NM cardiolite stress test Today I25.10 - Atherosclerotic heart disease of kenaitze coronary artery without angina pectoris, R07.9 - Chest pain, unspecified RT home sleep study Today G47.10 - Hypersomnia, unspecified, I25.10 - Atherosclerotic heart disease of kenaitze coronary artery without angina pectoris, R07.9 - Chest pain, unspecified CA echo transthoracic complete Today I25.10 - Atherosclerotic heart disease of kenaitze coronary artery without angina pectoris, R07.9 - Chest pain, unspecified Coding Level of Care Code Est Pt Level 4 (19154) Diagnoses Hypersomnia G47.10 Chest pain R07.9 Atherosclerotic cardiovascular disease I25.10 Type 2 diabetes mellitus with hyperglycemia, with long-term current use of insulin E11.65; Z79.4 Diabetes mellitus vermin exterminator insulin use: with vermin exterminator use Diabetes mellitus complication status: with hyperglycemia Mixed hyperlipidemia E78.2 CPT Codes EKG - CPT: [id number], Complete ([id number])
== END 2023-10-17 15:24 | disposition home or self-care (01) ==
PROVIDERS: PCP Registered Nurse; Visit Provider Nurse Practitioner
DX: G47.10 Hypersomnia, unspecified (principal); R07.9 Chest pain, unspecified; I25.10 Atherosclerotic heart disease of native coronary artery without angina pectoris; E11.65 Type 2 diabetes mellitus with hyperglycemia; Z79.4 Long term (current) use of insulin; E78.2 Mixed hyperlipidemia
CPT/HCPCS: 93010; 99214

== ENCOUNTER → 2023-10-17 14:40 | Outpatient (BNVA) | payer MEDICAID, SELFPAY | PROVIDERS: PCP Registered Nurse; Visit Provider Nurse Practitioner | DX: R07.9 Chest pain, unspecified (principal); G47.10 Hypersomnia, unspecified; I25.10 Atherosclerotic heart disease of native coronary artery without angina pectoris; E11.65 Type 2 diabetes mellitus with hyperglycemia; E78.2 Mixed hyperlipidemia; Z79.4 Long term (current) use of insulin | CPT/HCPCS: 93005; 99212 ==

== ENCOUNTER → 2023-12-02 14:13 | Outpatient (REF) | payer MEDICAID, SELFPAY | LOC: HO.SL 14:13 | PROVIDERS: PCP Registered Nurse; Visit Provider Nurse Practitioner | DX: G47.10 Hypersomnia, unspecified (principal); R07.9 Chest pain, unspecified; I25.10 Atherosclerotic heart disease of native coronary artery without angina pectoris; G47.33 Obstructive sleep apnea (adult) (pediatric) | CPT/HCPCS: 95806 ==

== ENCOUNTER → 2023-12-02 14:22 | Outpatient (BNV) | payer MEDICAID, SELFPAY | PROVIDERS: PCP Registered Nurse; Visit Provider Internal Medicine | DX: G47.33 Obstructive sleep apnea (adult) (pediatric) (principal) | CPT/HCPCS: 95806 ==

== ENCOUNTER → 2023-12-05 08:06 | Outpatient (REF) | payer MEDICAID, SELFPAY ==
--- NOTE | ~2023-12-05 | NM_ITS ---
Lexiscan Myocardial perfusion study Indication: Chest pain, assess for coronary disease and ischemia Technique: The patient was brought in for a Lexiscan perfusion study on 12/05/2023 and was injected 0.4 mg of Lexiscan intravenously. Within a minute of this injection 30 mCi of sestamibi was given intravenously. Images were obtained using the SPECT gamma camera interlaced with the gating device. Images were obtained in supine position. Resting perfusion study was performed on 12/11/2023. Patient was administered 30 mCi of sestamibi intravenously at rest. Images were then obtained in supine position. Images were processed with the software and compared side to side in short axis, horizontal long axis and vertical long axis views. Total DLP 104mGy-cm. Findings: Raw acquisition reviewed. The stress perfusion study showed diminished tracer uptake along the basal part of inferior wall. No major change with CT attenuation correction but there is also adjacent subdiaphragmatic tracer uptake. The gated study shows normal LV systolic function with calculated LVEF of 58%. LV cavity is normal in size. The gated study the basal inferior hypokinesis. Resting study shows improved uptake in the basal inferior wall compared to stress acquisition but does not normalizes completely. Gating at rest reveals basal inferior hypokinesis with an ejection fraction of 45%. The findings are consistent with mixed fixed/reversible perfusion defect in the basal inferior wall, extending into inferolateral wall. NM/NM cardiolite stress test Impression: 1. Myocardial perfusion imaging study shows mixed ischemia/infarction pattern in the basal inferior wall, extending into inferolateral wall. 2. Gated LVEF 58% during stress and 45% during rest. 3. Transient ischemic dilatation not present. EKG component of the test reported separately.
--- NOTE | 2023-12-05 08:17 | CA_ITS ---
Acquisition Time: 2023-12-05 08:14:48 Total Exercise Time: 00:02:00 Test Indications: Chest Pain Medications: SEE H Protocol: LEXISCAN Max HR: 095 BPM 55% of Pred: 172 BPM Max BP: 136/082 mmHG Max Work Load: 1.6 METS Pharmacological stress test with Lexiscan injection, while walking slow on treadmill, without anginal symptoms, without arrythmia, with normotensive response to injection, with nondiagnostic EKG for ischemia. Nuclear images pending. Test reviewed with Dr Bolanos Test ordered as an exercise nuclear stress test and patient refused exercise on treadmill due to right knee pain. Test changed to pharmacological nuclear stress test. Referred By: Jennifer Hilliard Overread By: TERRIE ORLANDO
== END ==
LOC: HO.CARD 08:06
PROVIDERS: PCP Registered Nurse; Visit Provider Nurse Practitioner
DX: R07.9 Chest pain, unspecified (principal); I25.10 Atherosclerotic heart disease of native coronary artery without angina pectoris
CPT/HCPCS: 78452; 93017; A9500; J0280; J2785

== ENCOUNTER → 2023-12-05 08:17 | Outpatient (BNV) | payer MEDICAID, SELFPAY | PROVIDERS: PCP Registered Nurse; Visit Provider Nurse Practitioner Family | DX: I25.10 Atherosclerotic heart disease of native coronary artery without angina pectoris (principal) | CPT/HCPCS: 78452; 93016; 93018 ==

== ENCOUNTER → 2023-12-26 12:59 | Outpatient (REF) | payer MEDICAID, SELFPAY ==
--- NOTE | 2023-12-26 13:01 | CA_ITS ---
Transthoracic Echocardiogram Patient (Last, First, Middle): Jacek Casillas, Gender: Male Date of : 1975 Age: 48 Procedure Date: 12/26/2023 Procedure Type: Transthoracic Echocardiogram Location: OP Height: 170.18 cm Weight: 90.72 kg BSA: 2.02 m2 Heart Rate: bpm BP: 128 / 80 mmHg Cork Tile Floor Layer: MACARIO Referring MD: Jennifer Hilliard BUTTON SAWYER Material Loader: Merrill Bolanos MD Symptoms: R07.9 - Chest pain, unspecified Study Quality: Adequate ECG Rhythm: Sinus Conclusions: - 1. Low normal LV ejection fraction of 50-55% with impaired relaxation filling pattern 2. Trivial aortic regurgitation 3. Mildly dilated ascending aorta at 3.8 cm 4. Normal RV systolic pressure 5. No gross pericardial effusion Findings Left Ventricle Normal left ventricular cavity size. There is normal left ventricular wall thickness. The left ventricular systolic function is low normal. The visually estimated ejection fraction is between 50-55%. Spectral Doppler is indicative of an impaired relaxation filling pattern. E/E prime ratio is between 8 and 15 consistent with indeterminate filling pressures. Peak GLS is -17.1%, which is borderline low. Wall Motion Rest Echo Findings The basal inferior segment is hypokinetic. All other scored wall segments showed normal motion. Right Ventricle Normal right ventricular cavity size and systolic function. Atria The left atrium is mildly dilated. There is no evidence of interatrial shunt. The right atrium is normal in size. Aortic Valve Normal aortic valve structure and function. There is no aortic valve stenosis. There is trace (trivial) aortic valve regurgitation. Mitral Valve Normal mitral valve structure and function. There is no mitral valve regurgitation. There is no mitral valve stenosis. Pulmonic Valve The pulmonic valve is likely normal. Tricuspid Valve Normal tricuspid valve structure. There is trace tricuspid valve regurgitation. The right ventricular systolic pressure is normal. The right ventricular systolic pressure is 13 mmHg. Normal right atrial pressure. There is no evidence of pulmonary hypertension. Great Vessels The pulmonary artery was not well visualized. There is mild dilatation of the ascending aorta measuring 3.80 cm. Venous The inferior vena cava is normal in size and collapses greater than 50% with inspiration. Pericardium/Pleural There is no evidence of pericardial effusion. Prior Study Comparison Changes noted compared to prior study dated: 01/30/2022. LV systolic function is modulators reduced Measurements 2D Linear Measurements IVSd: 1.15 0.6-0.9/0.6-1.0 cm LVIDd: 5.18 3.9-5.3/4.2-5.9 cm LVIDd Index: 2.56 2.4-3.2/2.2-3.1 cm/m2 LVIDs: 3.74 2.0-3.6 cm LVPWd: 1.05 0.7-1.1 cm Ao Root: 3.70 2.1-3.5 cm LA Diam: 4.50 2.7-3.8/3.0-4.0 cm LAIDs Index: 2.23 1.5-2.3 cm/m2 LV Mass: 273.47 67-162/88-224 g LV Mass Index: 135.38 43-95/49-115 g/m2 LVOT Diam: 2.50 3.0+(-)1.3 cm 2D Systolic Function EF 4C: 53.70 >55% EF 2C: 47.20 >55% EF BiP: 51.00 >55% Mitral Valve MV Pk E: 0.57 MV PK A: 0.61 MV Decel Time: 260.00 E/A: 0.90 E'Lateral: 4.57 E'Medial: 4.24 E/E' Med: 13.40 E/E' Lat: 12.50 PHT: 76.00 MVA PHT: 2.89 Decel Benton: 2.19 Aortic Valve AoV Pk Dmitry: 1.13 AoV Mn Dmitry: 0.73 AoV VTI: 0.26 AoV Pk Grad: 5.00 Aov Mn Grad: 3.00 ROSELIA Cont.VTI: 3.65 LVOT LVOT Pk Dmitry: 0.85 LVOT Mn Dmitry: 0.50 LVOT VTI: 0.20 LVOT Pk Grad: 3.00 LVOT Mn Grad: 1.00 LVOT Diam: 2.50 LVOT Area: 4.91 Diastolic Function MV Pk E: 0.57 MV Pk A: 0.61 E/A: 0.90 E'Medial: 4.24 E/E' Med: 13.40 E' Laterial: 4.57 E/E' Lat: 12.50 Right Ventricle TAPSE (mm): 29.00 TVS' Dmitry: 12.00 Tricuspid Valve TR Pk Dmitry: 1.55 TR Pk Grad: 10.00 RA Press: 3.00 RVSP: 13.00 Great Vessels Aorta Ao Root-2D: 3.70 2.0-3.7 cm Ao Asc: 3.80 2.1-3.4 cm Pulmonary Valve PV Pk Dmitry: 0.83 Peak PV Grad: 3.00 Updated in Other Vendor System with Status of Final Merrill Bolanos MD electronically signed on 12/27/2023 11:22:37 AM with status of Final
== END ==
LOC: HO.CARD 12:59
PROVIDERS: PCP Registered Nurse; Visit Provider Nurse Practitioner
DX: R07.9 Chest pain, unspecified (principal); I25.10 Atherosclerotic heart disease of native coronary artery without angina pectoris
CPT/HCPCS: 93306; 93356

== ENCOUNTER → 2023-12-26 13:01 | Outpatient (BNV) | payer MEDICAID, SELFPAY | PROVIDERS: PCP Registered Nurse; Visit Provider Internal Medicine Cardiovascular Disease | DX: I25.10 Atherosclerotic heart disease of native coronary artery without angina pectoris (principal) | CPT/HCPCS: 93306 ==

== ENCOUNTER 2024-03-03 14:49 | Outpatient (AMB) | payer MEDICAID, SELFPAY ==
--- NOTE | 2024-03-03 15:40 | A.OFFVIS_ITS ---
Intake Intake Visit Reasons: DM Gambling Cashier Required: Yes Gambling Cashier Language: Corporate Treasurer Name: [facility] glass cylinder flanger Accompanied by: Self / Same As Patient Allergies No Known Allergies Allergy (Verified 08/04/23 13:09) HPI Comprehensive Diabetes Asmnt Most Recent Diabetes Results: Cholesterol 298 mg/dL 01/27/23 HDL Cholesterol 31 mg/dL 01/27/23 Triglycerides 673 mg/dL 01/27/23 Creatinine 0.78 mg/dL (0.5-1.4) 11/13/22 Blood Urea Nitrogen 11 mg/dL (9-16) 11/13/22 Sodium 135 mmol/L (135-145) 11/13/22 Potassium 4.0 mmol/L (3.3-5.1) 11/13/22 Chloride 102 mmol/L (96-108) 11/13/22 Carbon Dioxide 24 mmol/L (22-29) 11/13/22 Calcium 9.4 mg/dL (8.4-10.2) 11/13/22 AST 26 U/L (5-37) 11/13/22 ALT 40 U/L (0-40) 11/13/22 Total Protein 8.1 g/dL (6.5-8.0) H 11/13/22 Albumin 4.3 g/dL (3.5-5.0) 11/13/22 COUNTS INCLUDE 234 BEDS AT THE [facility] Medical History (Updated 12/10/23 @ 11:30 by Jennifer Hilliard NP) ELVIA (obstructive sleep apnea) T2DM (type 2 diabetes mellitus) Inferior myocardial infarction Vitamin D deficiency HLD (hyperlipidemia) Mixed hyperlipidemia Hypertriglyceridemia Surgical History History of appendectomy Family History Father Cancer Mother CVD (cardiovascular disease) Hypertension Social History Alcohol intake: never Patient Tobacco Use Status: Current everyday Tobacco user Cigarette Packs Per Day: 1 Assessment & Plan Assessment & Plan (1) T2DM (type 2 diabetes mellitus): Code(s): E11.9 - Type 2 diabetes mellitus without complications Qualifiers: Diabetes mellitus usp insulin use: with usp use Diabetes mellitus complication status: with hyperglycemia Qualified Code(s): E11.65 - Type 2 diabetes mellitus with hyperglycemia; Z79.4 - prison (current) use of insulin Plan: Patient was confused about why he was scheduled with Diabetes Education, reports he had a myocardial infarction and thought he was here for cardiology checkup. Patient reports he sees endocrinology at [facility], patient has also seen Dr. Ashton in the past and has another appointment scheduled on 05/03/24 Suggested patient he decide whether he wants to be seen by endocrine here at [facility] or at [facility]. Patient did request refills for Levemir and pen needles, message sent to Dr. Lay oper Patient Instructions: Patient will not schedule another appointment that this time Coding Level of Care Code Est Pt Level 1 (31438) Diagnoses Type 2 diabetes mellitus with hyperglycemia, with long-term current use of insulin E11.65; Z79.4 Diabetes mellitus remote computer terminal operator insulin use: with remote computer terminal operator use Diabetes mellitus complication status: with hyperglycemia
== END 2024-03-03 15:39 | disposition home or self-care (01) ==
PROVIDERS: PCP Registered Nurse; Visit Provider Registered Nurse Diabetes Educator
DX: E11.65 Type 2 diabetes mellitus with hyperglycemia (principal); Z79.4 Long term (current) use of insulin

== ENCOUNTER → 2024-03-03 14:49 | Outpatient (BNVA) | payer MEDICAID, SELFPAY | PROVIDERS: PCP Registered Nurse; Visit Provider Registered Nurse Diabetes Educator | DX: E11.65 Type 2 diabetes mellitus with hyperglycemia (principal); Z79.4 Long term (current) use of insulin | CPT/HCPCS: 99211 ==

== ENCOUNTER 2024-07-15 15:13 | Outpatient (REF) | payer MEDICAID, SELFPAY ==
[2024-07-15 16:37] LABS: Alanine Aminotransferase 52 U/L (0-40); Albumin Level 4.3 g/dL (3.5-5.0); Alkaline Phosphatase 67 U/L (39-117); Aspartate Amino Transferase 54 U/L (5-37); Bilirubin Direct 0.1 mg/dL (0.0-0.5); Bilirubin Total 0.3 mg/dL (0.0-1.0); Total Protein 7.4 g/dL (6.5-8.0)
[2024-07-16 04:03] LABS: Syphilis Screen Nonreactive (Nonreactive)
[2024-07-16 04:26] LABS: HIV AB/AG Nonreactive (Nonreactive); HIV Num 1 0.04 S/CO (0.00-0.99); ~HepC Num1 0.14 S/CO (0.00-0.79); ~Hepatitis C Antibody Nonreactive (Nonreactive)
== END 2024-07-15 15:14 | disposition home or self-care (01) ==
LOC: HO.HHCL 15:13
PROVIDERS: Visit Provider Family Medicine
DX: F11.90 Opioid use, unspecified, uncomplicated (principal)
CPT/HCPCS: 36415; 80076; 86780; 86803; 87389

== ENCOUNTER 2024-08-24 06:37 | Outpatient (REF) | payer MEDICAID, SELFPAY ==
[2024-08-24 06:47] LABS: MANUAL DIFF FLAG NO
[2024-08-24 07:10] LABS: Basophils Absolute Auto 0.1 X10*3/uL (0.0-0.2); Basophils Percent Auto 1.5 % (0-2); Eosinophils Absolute Auto 0.4 X10*3/uL (0.0-0.4); Eosinophils Percent Auto 5.1 % (0-4); Hematocrit 42.9 % (42.0-52.0); Hemoglobin 14.4 g/dl (14.0-18.0); Imm Gran Abs Auto 0.03 X10*3/uL (0.00-0.03); Imm Gran Pct Auto 0.4 % (0.0-0.4); Lymphocytes Absolute Auto 2.6 X10*3/uL (1.2-4.9); Lymphocytes Percent Auto 37.5 % (20-40); Mean Corpuscular HGB Conc 33.6 g/dl (31.0-36.0); Mean Corpuscular Hemoglobin 28.9 pg (27.0-33.0); Mean Platelet Volume 10.3 fL (9.4-12.4); Monocytes Absolute Auto 0.7 X10*3/uL (0.1-1.2); Monocytes Percent Auto 10.5 % (2-11); Neutrophils Absolute Auto 3.1 x10*3/uL (2.0-8.3); Platelet Count 240 X10*3/uL (160-400); Red Blood Count 4.99 X10*6/uL (4.60-5.80); Red Cell Distribution Width 12.2 % (11.0-16.0); White Blood Count 6.9 X10*3/uL (4.8-10.8)
[2024-08-24 07:41] LABS: Creatinine Urine 157.42 mg/dL; Microalbum/Creatinine Ratio Ur 11.4 ug/mg cr (<30)
[2024-08-24 07:58] LABS: Estimated Average Glucose 212 mg/dL; Hemoglobin A1C 273.8239 umol/L; Total Hemoglobin (HGBA1C) 3658.2779 umol/L
[2024-08-24 07:59] LABS: Albumin Level 4.2 g/dL (3.5-5.0); Alkaline Phosphatase 79 U/L (39-117); Anion Gap 12 (12-20); Aspartate Amino Transferase 47 U/L (5-37); Bilirubin Direct 0.1 mg/dL (0.0-0.5); Bilirubin Total 0.6 mg/dL (0.0-1.0); Blood Urea Nitrogen 10 mg/dL (9-16); Calcium 9.6 mg/dL (8.4-10.2); Carbon Dioxide 24 mmol/L (22-29); Chloride 106 mmol/L (96-108); Cholesterol 182 mg/dL (<200); Estimated Glomerular Filt Rate > 60; Glucose Random 263 mg/dL (60-115); HDL Cholesterol 31 mg/dL (>40); Potassium 3.5 mmol/L (3.3-5.1); Sodium 138 mmol/L (135-145); Total Protein 7.4 g/dL (6.5-8.0); Triglycerides 419 mg/dL (<150)
[2024-08-24 08:09] LABS: Alanine Aminotransferase 45 U/L (0-40); TSH reflex Free T4 1.22 uIU/mL (0.32-4.0)
[2024-08-24 08:18] LABS: Prostate Specific Antigen 0.22 ng/mL (<0.05-4.0); Vitamin B12 1024 pg/mL (200-900)
== END 2024-08-24 06:38 | disposition home or self-care (01) ==
LOC: HO.LAB 06:37
PROVIDERS: PCP Registered Nurse; Visit Provider Registered Nurse
DX: Z00.00 Encounter for general adult medical examination without abnormal findings (principal); E11.65 Type 2 diabetes mellitus with hyperglycemia; Z79.4 Long term (current) use of insulin; M79.10 Myalgia, unspecified site
CPT/HCPCS: 36415; 80053; 80061; 82043; 82248; 82550; 82570; 82607; 82746; 83036; 84153; 84443; 85025

== ENCOUNTER 2024-08-26 13:06 | Outpatient (AMB) | payer MEDICAID, SELFPAY ==
--- NOTE | 2024-08-26 13:10 | MHC.OFFVIS ---
Vital Signs 08/26/24 13:12 Height 5 ft 7 in Weight 198 lb BMI 31.0 BP 104/62 Blood Pressure Location Lt brachial Position Sitting Pulse 77 Pulse Source Doppler Pulse Oximetry (%) 97 Oxygen Delivery Method Room Air Intake Visit Reasons: elvia Agricultural Systems Specialist Required: Yes Agricultural Systems Specialist Name: Theodora Eb Mark Allergies No Known Allergies Allergy (Verified 08/04/23 13:09) HPI HPI elvia: Details: 49-year-old gentleman, active 35 pack-year smoker interested in quitting with recent diagnosis of moderate obstructive sleep apnea referral for evaluation. Patient states that he is interested in trying CPAP therapy. He denies dyspnea on exertion. He does not have any inhaled bronchodilators. Patient denies prior personal history of lung disease. He denies exposure to industrial dusts. His pulmonary function test from June of 2024 showed no fixed obstruction, but decreased diffusion capacity likely secondary to pulmonary emphysema. [facility] Medical History (Updated 08/26/24 @ 13:39 by Jc Amaya MD) ELVIA (obstructive sleep apnea) T2DM (type 2 diabetes mellitus) Inferior myocardial infarction Vitamin D deficiency HLD (hyperlipidemia) Mixed hyperlipidemia Hypertriglyceridemia Surgical History History of appendectomy Family History Father Cancer Mother CVD (cardiovascular disease) Hypertension Social History (Updated 08/26/24 @ 13:16 by Theodora Gallegos Sussy) Alcohol intake: never Patient Tobacco Use Status: Current everyday Tobacco user Tobacco use type: Cigarette Cigarette Packs Per Day: 1 Years Smoked: Started around age 14, 1PPD Review of Systems Const Reports daytime sleepiness, Denies excessive sweating, Denies fatigue, Denies fever(s), Reports lethargy, Denies malaise, Denies night sweats, Denies snoring and Denies weight loss Eyes Denies blurry vision and Denies itchy eyes ENT Denies nasal congestion, Denies post nasal drip, Denies sinus pain, Denies sinus pressure and Denies other ( Thrush) Card Denies chest pain, Denies pedal edema, Denies dyspnea, Denies orthopnea and Denies paroxysmal nocturnal dyspnea Resp Denies cough, Denies hemoptysis, Denies excessive phlegm production, Denies dyspnea, Denies snoring and Denies wheezing GI Denies abdominal pain and Denies heartburn Musc Denies myalgias, Denies arthralgias and Denies joint swelling Skin/Breast Denies rash Neuro Denies memory loss and Denies seizure-like activity Psych Denies abnormal sleep pattern, Denies anxiety and Denies memory loss Endo Denies excessive sweating, Denies fatigue and Denies heat intolerance Moe/Lymph Denies easy bruising Aller/Immun Denies itchy eyes, Denies seasonal rhinorrhea and Denies wheezing Physical Exam Vital Signs: Last Vital Signs Pulse 77 08/26/24 13:12 BP 104/62 08/26/24 13:12 Pulse Ox 97 08/26/24 13:12 Oxygen Delivery Method Room Air 08/26/24 13:12 BMI result Body Mass Index 31.0 Const General: no acute distress and alert Nutritional Appearance: not obese Orientation/consciousness: Other orientation findings ( oriented) HEENT Head: Yes atraumatic Eyes General: appearance normal, both eyes and all related structures Sclerae: sclerae normal EOM: EOMs intact bilaterally Neck Neck: Yes supple Lymphatic: no lymphadenopathy noted Resp Effort & Inspection: normal respiratory effort and no use of accessory muscles Auscultation: clear to auscultation bilaterally Cardio Rate: regular rate Rhythm: regular rhythm Heart sounds: no gallops, no murmurs and no rubs Skin General skin exam: other ( warm) Extrem General: No clubbing, No cyanosis and No edema Assessment & Plan Assessment & Plan (1) ELVIA (obstructive sleep apnea): Code(s): G47.33 - Obstructive sleep apnea (adult) (pediatric) Category: Medical Plan: Results of sleep study reviewed, underlying moderate obstructive sleep apnea with AHI of 20. Will start on APAP of 6-16 cm of water. (2) Pulmonary emphysema: Code(s): J43.9 - Emphysema, unspecified Category: Medical Plan: Pulmonary emphysema without fixed obstruction. Start albuterol MDI and reassess symptoms in 6-8 weeks. Patient is interested in quitting smoking, Chantix prescribed. Medications: New albuterol sulfate 90 mcg/actuation 2 puffs inhalation Q4-6H PRN 1 ea 6RF shortness of breath or wheezing varenicline (Chantix Starting Month Box) PO PER PKG DIR 53 ea 0RF Coding Level of Care Code New Pt Level 4 (34376) Complex EM visit Add On G2211 Diagnoses ELVIA (obstructive sleep apnea) G47.33 Pulmonary emphysema J43.9
[2024-08-26 13:12] VITALS: BP 104/62; PULSE 77; O2SAT 97; BMI 31.0
== END 2024-08-26 13:32 | disposition home or self-care (01) ==
PROVIDERS: PCP Registered Nurse; Visit Provider Internal Medicine Pulmonary Disease
DX: G47.33 Obstructive sleep apnea (adult) (pediatric) (principal); J43.9 Emphysema, unspecified
CPT/HCPCS: 99214

== ENCOUNTER → 2024-08-26 13:06 | Outpatient (BNVA) | payer MEDICAID, SELFPAY | PROVIDERS: PCP Registered Nurse; Visit Provider Internal Medicine Pulmonary Disease | DX: J43.9 Emphysema, unspecified (principal); G47.33 Obstructive sleep apnea (adult) (pediatric); F17.210 Nicotine dependence, cigarettes, uncomplicated | CPT/HCPCS: 99212 ==

== ENCOUNTER 2024-09-07 09:20 | Outpatient (REF) | payer MEDICAID, SELFPAY ==
[2024-09-07 12:47] LABS: Cholesterol 262 mg/dL (<200); HDL Cholesterol 24 mg/dL (>40); Triglycerides 1159 mg/dL (<150)
[2024-09-09 19:24] LABS: LDL Cholesterol Direct 56 mg/dL (<100)
[2024-09-12 20:18] LABS: CK-BB None Detected (None Detected); CK-MB 0 % (<5); CK-MM 100 % (95-100); Creatine Kinase,Total,Serum 224 U/L (44-196)
== END 2024-09-07 09:21 | disposition home or self-care (01) ==
LOC: HO.LAB 09:20
PROVIDERS: PCP Registered Nurse; Visit Provider Registered Nurse
DX: E78.1 Pure hyperglyceridemia (principal)
CPT/HCPCS: 36415; 80061; 82552; 83721